=== PATIENT | female | born 1955 | race Caucasian/White ===

== ENCOUNTER → 2024-07-20 07:14 | Outpatient (REF) | payer MEDICARE, SELFPAY ==
[2024-07-20 08:10] LABS: % Basophils 0.7 % (0-2); % Eosinophils 4.2 % (0-6); % Immature Granulocytes 0.2 % (0-0.5); % Lymphocytes 34.5 % (20.5-51.1); % Monocytes 8.1 % (1.7-9.3); % Neutrophils 52.3 % (42.2-75.2); Absolute Eosinophils 0.2 10^3/uL (0-0.7); Absolute Lymphocytes 1.9 10^3/uL (1.2-3.4); Absolute Monocytes 0.4 10^3/uL (0.1-0.6); Absolute Neutrophils 2.8 10^3/uL (1.4-6.5); Hemoglobin 10.3 g/dL (12.0-16.0); Mean Corp Hgb Conc. 30.3 g/dL (33.0-37.0); Mean Corpuscular Hgb 28.1 pg (27.0-31.0); Mean Corpuscular Volume 92.9 fL (81.0-99.0); Mean Platelet Volume 8.5 fL (7.4-10.4); Nucleated Red Blood Cells % 0 %; Platelet Count 288 10^3/uL (130-400); Red Blood Cell Count 3.66 10^6/uL (4.20-5.40); Red Cell Dist. Width 14.1 % (11.5-14.5); White Blood Cell Count 5.4 10^3/uL (4.8-10.8)
[2024-07-20 08:42] LABS: ALT (SGPT) < 10 U/L (0-35); AST (SGOT) 14 U/L (14-36); Albumin 3.8 g/dl (3.5-5.0); Alkaline Phosphatase 79 U/L (38-126); Blood Urea Nitrogen 25 mg/dl (7-17); Calcium 9.8 mg/dl (8.4-10.2); Carbon Dioxide 28 mmol/L (22-30); Chloride 109 mmol/L (98-107); Glucose 92 mg/dl (70-99); HDL Cholesterol 47 mg/dl; LDL Cholesterol, Calculated 134 mg/dl; Potassium 4.8 mmol/L (3.5-5.1); Sodium 143 mmol/L (135-145); Total Bilirubin 0.4 mg/dl (0.2-1.3); Total Cholesterol 199 mg/dl (50-199); Total Protein 6.7 g/dl (6.3-8.2); Triglyceride 94 mg/dl (10-149); Very Low Density Lipoprotein 18 mg/dl (0-30); eGFR > 60.00
[2024-07-20 09:07] LABS: TSH Reflex To Free T4 1.25 uIU/ml (0.47-4.68)
== END ==
LOC: REG 07:14
PROVIDERS: ATTENDING PHYSICIAN Internal Medicine
DX: R03.0 Elevated blood-pressure reading, without diagnosis of hypertension (principal); E78.00 Pure hypercholesterolemia, unspecified
CPT/HCPCS: 36415; 80053; 80061; 84443; 85025

== ENCOUNTER → 2024-09-07 07:32 | Outpatient (REF) | payer MEDICARE, OTHER, SELFPAY ==
[2024-09-07 10:03] LABS: Cortisol, Random 26.4 ug/dl
[2024-09-07 12:07] LABS: Microalb - Urine Creatinine 121.000 mg/dl
[2024-09-07 12:13] LABS: Microalbumin, Random Urine 1.6 mg/dl (0.6-1.7)
[2024-09-09 18:43] LABS: Aldosterone/Renin Activ Ratio 18.3 ratio (<=25.0); Renin Activity Results 0.6 ng/mL/hr
== END ==
LOC: REG 07:32
PROVIDERS: ATTENDING PHYSICIAN Specialist; FAMILY PHYSICIAN Internal Medicine
DX: R09.89 Other specified symptoms and signs involving the circulatory and respiratory systems (principal)
CPT/HCPCS: 36415; 82043; 82088; 82533; 82570; 83835; 84244

== ENCOUNTER → 2024-10-17 09:46 | Outpatient (REF) | payer MEDICARE, OTHER, SELFPAY | LOC: RAD 09:46 | PROVIDERS: ATTENDING PHYSICIAN Obstetrics & Gynecology; FAMILY PHYSICIAN Internal Medicine | DX: Z78.0 Asymptomatic menopausal state (principal) | CPT/HCPCS: 77080 ==

== ENCOUNTER → 2024-10-28 07:34 | Outpatient (REF) | payer MEDICARE, OTHER, SELFPAY ==
[2024-10-28 09:01] LABS: Hematocrit 38.0 % (37.0-47.0); Hemoglobin 11.8 g/dL (12.0-16.0); Mean Corp Hgb Conc. 31.1 g/dL (33.0-37.0); Mean Corpuscular Volume 85.2 fL (81.0-99.0); Nucleated Red Blood Cells % 0 %; Platelet Count 320 10^3/uL (130-400); Red Cell Dist. Width 17.2 % (11.5-14.5)
[2024-10-28 09:37] LABS: ALT (SGPT) < 10 U/L (0-35); AST (SGOT) 16 U/L (14-36); Albumin 3.8 g/dl (3.5-5.0); Alkaline Phosphatase 80 U/L (38-126); Blood Urea Nitrogen 22 mg/dl (7-17); Calcium 9.9 mg/dl (8.4-10.2); Carbon Dioxide 29 mmol/L (22-30); Chloride 107 mmol/L (98-107); Glucose 98 mg/dl (70-99); Iron 43 ug/dl (37-170); Sodium 143 mmol/L (135-145); Total Protein 6.8 g/dl (6.3-8.2); eGFR > 60.00
[2024-10-28 09:40] LABS: C-Reactive Protein 18.10 mg/L (0.0-10.00)
[2024-10-28 09:46] LABS: Total Iron Binding Capacity 290 ug/dl (265-497)
[2024-10-28 09:51] LABS: Potassium 5.1 mmol/L (3.5-5.1)
[2024-10-28 13:57] LABS: Microalbumin, Random Urine 0.6 mg/dl (0.6-1.7)
[2024-10-28 14:48] LABS: Microalb - Urine Creatinine 91.200 mg/dl
== END ==
LOC: REG 07:34
PROVIDERS: ATTENDING PHYSICIAN Specialist; FAMILY PHYSICIAN Internal Medicine
DX: R61 Generalized hyperhidrosis (principal); I10 Essential (primary) hypertension; D64.9 Anemia, unspecified
CPT/HCPCS: 36415; 80053; 82043; 82570; 83540; 83550; 85025; 85652; 86140

== ENCOUNTER → 2024-11-04 14:23 | Outpatient (REF) | payer MEDICARE, OTHER, SELFPAY | LOC: RAD 14:23 | PROVIDERS: ATTENDING PHYSICIAN Thoracic Surgery (Cardiothoracic Vascular Surgery); FAMILY PHYSICIAN Internal Medicine; REFERRING PHYSICIAN Specialist | DX: I71.010 Dissection of ascending aorta (principal); I71.019 Dissection of thoracic aorta, unspecified | CPT/HCPCS: 71275; 74174; Q9967 ==

== ENCOUNTER 2024-12-23 06:26 | Day surgery (SDC) | payer MEDICARE, OTHER, SELFPAY ==
[2024-12-23] VITALS (7 sets, daily range): BP systolic 116–134; BP diastolic 66–84; BMI 21.5
--- NOTE | 2024-12-23 07:03 | HP.FOC2 ---
Focused History & Physical
Chief Complaint
HPI:
Chief Complaint: Epigastric incisional hernia
HPI / Indication for Planned Procedure: Patient is a 61-year-old female who previously underwent emergent repair of a ascending aortic dissection. She has recovered well from this. In the region of a chest tube insertion site she is taking note of
at least 2 separate small swellings. The swelling is present upon standing or with abdominal exertion. Examination confirmed the presence of reducible epigastric incisional hernia. She presents today for scheduled operative correction.
Relevant Past Medical History: Other (Previous history of tobacco use, hypertension, ascending aorta/arch dissection, history of osteomyelitis, cervical herniated disc)
Relevant Social History: Tobacco Use (Quit)
Relevant Family History: Negative
Relevant Past Surgical History: Positive for (Appendectomy, tonsils, debridement left middle finger osteomyelitis, ascending aortic replacement)
Review of Systems
Review of Pertinent Systems: All Systems Negative
Medication
See Medication form for detailed medications: Yes
Medication List (including Herbals & OTC):
aspirin 81 mg tablet 81 mg PO DAILY 12/19/24
calcium carbonate 500 mg PO DAILY 12/19/24
carvedilol 6.25 mg tablet 6.25 mg PO BID 12/19/24
cyclobenzaprine 5 mg tablet 5 mg PO HS 12/19/24
losartan 50 mg tablet 50 mg PO DAILY 12/19/24
pregabalin 75 mg capsule (Lyrica) 75 mg PO BID 12/19/24
Medications Reviewed: Yes
Allergies and Reactions
Patient has Allergies: Yes
Noted Allergies and Reactions:
Allergy/AdvReac Type Severity Reaction Status Date / Time
sulfacetamide Allergy didn't work Verified 12/19/24 14:43
Pertinent Physical Exam
All Other Systems: Negative
Head/Neck: Normal
Lungs: Normal
Heart: Normal
Abdomen: Other (Soft reducible incisional hernia in the epigastric region in the immediate vicinity of her chest tube surgical scars.)
Extremities: Normal
Neurological: Normal
Diagnosis / Assessment
69-year-old female presenting for scheduled operative correction epigastric incisional hernias
Plan / Procedure
Open incisional hernia repair with mesh
Anesthesia/Sedation to be done by Anesthesia Provider: Yes
--- NOTE | 2024-12-23 07:06 | W.SUR.PREOP ---
Pre-Operative Surgical Note
-
I have examined this patient prior to the performance of the scheduled procedure.
The patient's condition is unchanged from the time of the current History and
Physical and the patient is able to undergo the scheduled procedure.
[2024-12-23] MEDS: NORMOSOL-R/PLASMALYTE-A 1000 IV (08:08)
[2024-12-23] MEDS: TYLENOL 1000 MG PO (08:09)
--- NOTE | 2024-12-23 10:38 | W.IMMPOSTOP ---
Addendum entered and electronically signed by Apollo Monson MD 12/23/24 10:50:
#[id number]
Original Note:
Surgical Immed Post Op Note
-
Primary Surgeon: Apollo Monson MD
Assisting Surgeon: ANN Morelos
Tarun Julio
Pre-op Diagnosis: Epigastric incisional hernia
Post-op Diagnosis: Epigastric incisional hernia; 2.8 cm
Procedure Performed: Open incisional hernia pair with mesh; underlay preperitoneal Ventralex ST 6.4 cm round
Anesthesia Type: LMA +1% lidocaine and 0.25% Marcaine with epi
Specimen / Cultures: None
Estimated Blood Loss: 6 mL
Complications: None immediate
Operative Findings: 2 fascial defects within the linea alba parallel to each other in the epigastrium consistent with prior chest tube sites. Fascial defects united with total horizontal length 2.8 cm. Underlay preperitoneal mesh repair.
Ventralex ST 6.4 cm round, superior and inferior strap secured with buried horizontal mattress 0 Maxon. Fascial defect closed with running continuous 0 Maxon.
== END 2024-12-23 11:50 | disposition home or self-care (01) ==
LOC: SDS 06:26
PROVIDERS: ATTENDING PHYSICIAN Surgery
DX: K43.2 Incisional hernia without obstruction or gangrene (principal)
CPT/HCPCS: 49593; C1781